=== PATIENT | female | born 2000 | race Caucasian/White ===

== ENCOUNTER 2022-02-18 06:55 | Emergency (ER) | payer OTHER ==
[~2022-02-18] VITALS: Ht 162.6 cm; Wt 57.6 kg
[2022-02-18] MEDS ORDERED: ALDACTONE50 MG PO (07:10)
[2022-02-18] MEDS ORDERED: ESTARYLLA1 EACH PO (07:14)
== END 2022-02-18 10:45 | disposition home or self-care (01) ==
LOC: ER 06:55
DX: R10.13 Epigastric pain (principal); Z88.1 Allergy status to other antibiotic agents; Z20.822 Contact with and (suspected) exposure to COVID-19